=== PATIENT | male | born 1980 | race African-American/Black ===

== ENCOUNTER 2020-09-09 02:51 | Emergency (ER) | payer SELFPAY ==
[~2020-09-09] VITALS: Ht 180.3 cm; Wt 73.9 kg
[2020-09-09] MEDS ORDERED: IBU600 MG PO (03:24)
== END 2020-09-09 03:45 | disposition home or self-care (01) ==
LOC: ED 02:51
DX: S76.012A Strain of muscle, fascia and tendon of left hip, initial encounter (principal); S76.912A Strain of unspecified muscles, fascia and tendons at thigh level, left thigh, initial encounter; W17.81XA Fall down embankment (hill), initial encounter
CPT/HCPCS: 99283; A9270